=== PATIENT | female | born 1985 | race Caucasian/White ===

== ENCOUNTER 2017-04-22 08:32 | Outpatient (RCR) | payer OTHER, SELFPAY | END 2017-04-22 08:33 | LOC: DC 08:32 | PROVIDERS: Visit Provider Obstetrics & Gynecology | DX: O24.410 Gestational diabetes mellitus in pregnancy, diet controlled (principal); Z71.3 Dietary counseling and surveillance | CPT/HCPCS: G0108 ==

== ENCOUNTER → 2017-05-25 11:42 | Outpatient (CLI) | payer OTHER, SELFPAY ==
[2017-05-25 15:16] LABS: Hematocrit 36.4 % (37-47); Hemoglobin 11.7 g/dl (12.0-15.0); Mean Corp Hgb Conc 32.1 g/gl (32-36); Mean Corpuscular Hgb 25.7 pg (27.0-32.0); Mean Platelet Vol. 9.7 fl (6.2-12.0); Platelet Count 219 K/mm3 (150-450); RBC Distribution Width CV 14.4 % (11.6-14.6); RBC Distribution Width SD 41.3 fl (35.1-43.9); Red Blood Count 4.55 M/mm3 (4.2-5.4); White Blood Count 10.9 K/mm3 (4.4-11.0)
[2017-05-25 15:18] LABS: Scan Indicated on CBC? Y/N NO
[2017-05-25 15:31] LABS: ALB/GLOB Ratio 0.6 RATIO (0.9-2.4); AST(SGOT) 12 U/L (15-37); Alanine Aminotransfer ALT/SGPT 17 U/L (13-56); Albumin, Serum 2.5 g/dL (3.2-5.0); Alkaline Phosphatase 144 U/L (45-117); Anion Gap 9 (5-15); BUN 6 mg/dL (7-18); Calcium,Total 8.3 mg/dL (8.5-10.1); Chloride 108 mmol/L (98-107); EST Glomerular Filtration Rate 196 mL/min (>60); Est Glom Filt Rate - Afr Amer 237 mL/min (>60); Globulin 3.9 g/dL (2.2-4.2); Glucose 110 mg/dL (74-106); Potassium 3.8 mmol/L (3.5-5.1); Protein, Total 6.4 g/dL (6.4-8.2); Sodium Level 138 mmol/L (136-145)
== END ==
PROVIDERS: Visit Provider Obstetrics & Gynecology
DX: O26.893 Other specified pregnancy related conditions, third trimester (principal); R11.0 Nausea; Z3A.00 Weeks of gestation of pregnancy not specified
CPT/HCPCS: 36415; 80053; 85027

== ENCOUNTER 2017-06-21 05:10 | Inpatient (IN) | payer OTHER, SELFPAY ==
[2017-06-15 15:44] VITALS: BMI 42.0
[2017-06-21] VITALS (14 sets, daily range): BP systolic 90–144; BP diastolic 45–97; PULSE 70–94; RESP 14–24; TEMP 35.6–36.2; O2SAT 97–100
[2017-06-21] MEDS: Lactated Ringers 1,000 ML 999 ML IV (05:40)
[2017-06-21 06:17] LABS: Absolute Lymphocyte Count 1.72 X10^3/ul (0.83-4.51); Absolute Neutrophil Count 9.8 X10^3/uL (2.0-7.7); Basophil# 0.03 X10^3/uL; Basophil% 0.2 % (0-1); Eosinophil# 0.14 X10^3/uL; Eosinophils% 1.1 % (0-5); Hematocrit 36.6 % (37-47); Hemoglobin 11.9 g/dl (12.0-15.0); Lymphocyte # 1.72 X10^3/ul (4.0); Lymphocyte % 13.9 % (19-41); Mean Corp Hgb Conc 32.5 g/gl (32-36); Mean Corpuscular Hgb 25.4 pg (27.0-32.0); Mean Corpuscular Volume 78.2 fL (81-99); Mean Platelet Vol. 10.6 fl (6.2-12.0); Monocyte# 0.67 X10^3/uL; Monocyte% 5.4 % (0-10); Neutrophil # 9.76 X10^3/uL (2.7-7.7); Neutrophil % 78.8 % (47-70); Platelet Count 252 K/mm3 (150-450); RBC Distribution Width CV 14.5 % (11.6-14.6); RBC Distribution Width SD 40.3 fl (35.1-43.9); Red Blood Count 4.68 M/mm3 (4.2-5.4); White Blood Count 12.4 K/mm3 (4.4-11.0)
[2017-06-21 06:23] LABS: POSITIVE COUNT NO; POSITIVE DIFFERENTIAL NO; POSITIVE MORPHOLOGY NO
[2017-06-21 06:34] LABS: International Normalized Ratio 0.9; Prothrombin Time (Protime)PT. 12.2 SECONDS (11.7-14.9)
[2017-06-21] MEDS: Lactated Ringers 1,000 ML 150 ML IV (06:42)
[2017-06-21] MEDS: Sodium Citrate/Citric Acid 30 ML UDC PO (06:57)
--- NOTE | 2017-06-21 07:18 | PLAC_PTH ---
PATIENT: SHANELL GILLIAM LOC: [facility] U#:[id number] AGE/SX: 31/F ROOM: WP007 RE06/21/[address]: Dr. Tory Gardner MD : 1985 BED: 1 DIS: 06/23/2017 SPEC #: [id number] RECD: 06/22/17 05:06 STATUS: CARL OPHELIA #: [id number] LAZARO: 06/21/17 07:[address]: Tory Gardner DEPT: SURGICAL PATHOLOGY RECD BY: Freddie Ng ENTERED: 06/22/17 11:24 SP TYPE: PLACENTA OTHR DR: Out of [facility] Doctor Tissues: Placenta, NOS Procedures: Surgery Specimen Level V HEADER OPERATION: Repeat section PRE-OP DIAGNOSIS: Diabetic, 39 weeks TISSUE SUBMITTED: Placenta MICROSCOPIC DIAGNOSIS Sanchez placenta (1166 gm): Umbilical cord ? trivascular with early acute funisitis. Placental membranes ? no pathologic change. Placental disc ? organism foci of intraparenchymal hemorrhage. Increased intraparenchymal fibrin plaques, intravillous congestion and intervillous congestion. AM:kaela 06/23/17 MICROSCOPIC DESCRIPTION Slides are reviewed. GROSS DESCRIPTION SPECIMEN: PLACENTA / CLINICAL INFORMATION: A. Weight: 4.483 kg B. Gestational Age: 39 weeks C. Sex: Male PLACENTAL WEIGHT (POST FIXATION): 1166 gm PLACENTAL DIMENSIONS: 21 x 17 x 4 cm PLACENTAL SHAPE: Usual ovoid PLACENTAL WEIGHT FOR GESTATIONAL AGE: Over 10-99th percentile MEMBRANES - Present A. Insertion: Marginal B. Site of rupture from edge: At edge of placental disc C. Color of membrane: Almonte-singletary D. Abnormalities: None UMBILICAL CORD - Present A. Color: Almonte-singletary B. Insertion: Eccentric C. Length: 48 cm D. Diameter: 1.4 cm E. Number of vessels: Three F. Abnormalities: None PLACENTAL DISC - Present A. Color of surface: Almonte-singletary B. surface abnormalities: None C. Maternal cotyledons: Intact with minimal tears D. Attached retro placental clot: No clot E. Cut surface: Dark red and spongy F. Lesions: Serial sections reveal two firm, almonte-white lesions near the maternal surface ranging in size from 1.5 to 1.8 cm in greatest dimension. G. Separate clot: Absent SECTIONS SUBMITTED: 1. Umbilical cord and membranes. 2. Largest placental lesion. 3. Smaller placental lesion. 4. Placental disc, and maternal surfaces 5. Placental disc, and maternal surfaces AM:kaela 06/22/17 TC:2 CPT: 34533
--- NOTE | 2017-06-21 07:44 | FALS_PTH ---
PATIENT: SHANELL GILLIAM LOC: [facility] U#:[id number] AGE/SX: 31/F ROOM: WP007 RE06/21/[address]: Dr. Tory Gardner MD : 1985 BED: 1 DIS: 06/23/2017 SPEC #: [id number] RECD: 06/21/17 11:00 STATUS: CARL OPHELIA #: [id number] LAZARO: 06/21/17 07:[address]: Tory Gardner DEPT: SURGICAL PATHOLOGY RECD BY: Naif Reyes ENTERED: 06/21/17 11:51 SP TYPE: FALL TUBES OTHR DR: Out of [facility] Doctor Tissues: Fallopian tube Procedures: Surgery Specimen Level II HEADER OPERATION: Tubal ligation PRE-OP DIAGNOSIS: Desires sterilization TISSUE SUBMITTED: Fallopian tubes, suture in right tube MICROSCOPIC DIAGNOSIS Bilateral fallopian tubes, tubal ligation: Completely transected segments of bilateral fallopian tubes, no pathologic diagnosis. SJ:kaela 06/22/17 MICROSCOPIC DESCRIPTION Slides are reviewed. GROSS DESCRIPTION Received is one container labeled with the patient's name and designated suture right tube. The specimen consists of two pieces of almonte tubular tissue. The right tube is identified by a suture. The right fallopian tube measures 1.5 cm in length and 0.5 cm in diameter. The left fallopian tube measures 2 cm in length and 0.5 cm in diameter. The right tube with suture is inked black. The entire specimen is submitted in one cassette. Both pieces will be serially sectioned at the time of embedding. / GLORIA:kaela 06/21/17 TC:4 CPT: 59498 x2
[2017-06-21] MEDS: Oxytocin 30 units/NS 500 ml 30 UNITS/500 ML IV.SOLN 167 UNITS IV (07:45)
[2017-06-21] MEDS: Ketorolac 30 MG/ML Syringe IV ×3 (08:30→20:45)
[2017-06-21] MEDS: Lactated Ringers 1,000 ML 100 ML IV ×2 (08:46→17:38)
[2017-06-21 09:10] LABS: Bedside Glucose 104 mg/dL (70-110)
[2017-06-21 11:00] LABS: Pathology Specimen OB SEE PATHOLOGY REPORT
[2017-06-21] MEDS: Sertraline 50 MG Tablet PO (11:38)
[2017-06-21] MEDS: Prenatal Vits Tablet 1 TABLET PO (11:39)
[2017-06-21] MEDS: 0.9% Saline Lock 10 ML Syringe IV (14:31)
[2017-06-21 15:01] LABS: Bedside Glucose 66 mg/dL (70-110)
--- NOTE | 2017-06-21 15:52 | PCM.OP.BLANK ---
Operative Report Date of Procedure: 06/21/17 PROCEDURE: Repeat C section. Bilateral partial salpingectomy Preoperative diagnosis: 39 wk EGA Prior C section, planned repeat C section Sterilization request. Insulin requiring Gestational diabetes Postop diagnosis: 39 wk EGA Prior C section, planned repeat C section Sterilization request. Insulin requiring Gestational diabetes Anesthesia: Epidural, Theodore Saunders CRNA Surgeon: Tory Gardner MD Infection Control Preventionist: JAVIER Gregg EBL 800 cc Complications: none Drains: Aggarwal draining clear yellow urine Fluids: replacement LR Findings: At amniotomy, clear fluid was noted. Sanchez viable male in vertex presentation. Apgars 9/9, Baby weight: 10# 5 oz. There was a normal appearing uterus, fallopian tubes and ovaries bilaterally. There were filmy adhesions between the bladder and the anterior lower uterine segment. PATH: Routine cord blood for typing collected. Routine cord gases were sent. Bilateral fallopian tube segments. Narrative account: After the risks, benefits and alternatives of the procedure were reviewed with the patient, informed consent was obtained. The patient was taken to the Operative room with an IV running, and placed in a seated position on the operating table for placement of the spinal. Once the spinal had been administered, she was briefly frog-legged for Aggarwal catheter placement, and then repositioned to dorsal supine position with leftward displacement of the uterus, and prepped and draped in the usual sterile fashion. Once the spinal was deemed adequate, a Pfannenstiel skin incision was created using the knife (through the prior skin incision scar). The incision was carried down to the rectus fascia using the knife. The fascia was nicked in the midline. The fascial incision was extended bilaterally using curved Yeboah scissors. The superior aspect of the fascial incision was grasped with Sy clamps and tented up and the underlying rectus abdominal muscles were dissected free. In a similar manner, the inferior aspect of the facial incision was grasped with Sy clamps tented up and the underlying rectus abdominal muscles were dissected free. The rectus abdominis muscles were in the midline and the peritoneum was identified and entered by sharp dissection high in the incision. The peritoneum was stretched laterally and a bladder blade was inserted. A bladder flap was created along the lower uterine segment with Metzenbaum scissors . The uterine incision was then created using Metzenbaum scissors. The operators fingertips were used to extend the uterine incision by blunt dissection in a caudad- cephalad orientation . Clear fluid was noted at amniotomy. The vertex was then delivered atraumatically through the incision. The OP and nares were bulb suctioned on the abdomen. The shoulders delivered easily. The cord clamped x two and cut. And the infant was handed off to the nurse awaiting delivery after briefly showing him to his parents. The baby had a spontaneous, vigorous cry. The umbilical cord was clamped again to maintain blood for cord blood collection and the placenta was then delivered. The uterus was exteriorized and cleared of clots and debris . The uterine incision was repaired with 1 Vicryl in a running locked fashion. Excellent hemostasis was noted. The R fallopian tube was grasped at a relatively avascular midportion and a Briana clamp was used to tent the tube up. A defect was created in the mesosalpinx using Bovie cautery and the proximal and distal end of the fallopian tube were tied with 2-0 catgut. A knuckle of the tube was then tied off inferior to the ties. A segment of the L fallopian tube was then excised using Metzenbaum scissors and the tubal stumps were Bovie cauterized to assure continued hemostasis. The tubal segment was set aside for later pathology review. In a similar manner the L fallopian partial salpingectomy was performed. Excellent hemostasis was noted at all tubal segments. At this point the uterus was returned to the abdominal cavity. The gutters were cleared of clots and debris and the incision at the uterus was inspected. Excellent hemostasis was noted. The peritoneal edges and rectus abdominis muscles were reapproximated in the midline with interrupted sutures of 1 Vicryl. Excellent hemostasis was noted at the subfascial space The fascia was closed in a running nonlocked fashion with a Stratafix suture. The Subcutaneous fatty tissue was Bovie cauterized as needed for hemostasis. This layer was then reapproximated with a single layer of running 3-0 Vicryl to eliminate space. The skin edges were closed in a Subcuticular stitch of 4-0 Monocryl. The incision was cleansed. Cavilon, Steristrips, and a Mepilex dressing were applied. The patient was then transferred to the recovery room bed in stable condition after tolerating the procedure well. Sponge, lap, needle and instrument counts correct times two. Medications given preop and intraoperatively included: Ancef 3 gm given quality control director to the operating room. The patient also received Pitocin given IV after cord clamp, and Toradol 30 mg IV times one. For a complete listing of medications given preop and intraoperatively, please see the anesthesia record.
--- NOTE | 2017-06-21 16:05 | PCM.DCCSEC ---
Discharge Diet: No Restrictions Discharge Activity: May not drive while taking narcotic pain medications., May Shower, May Take a Tub Bath Return to work on:: 08/16/17 May resume sexual activity in: 4-6 weeks Lifting Restrictions: 20 pounds Additional Activity Instructions:: Nothing in the vagina for 4-6 weeks. You may return to work/school in 6 weeks. Change Dressing in (Days):: 4 Remove Dressing in (days):: 4 Cleanse incision/area with: Soap & Water, Keep Dressing Clean & Dry Additional Instructions: If you experience any of the following, contact your healthcare provider. Bleeding that soaks a pad every hour for 2 hours Fever 100.4 or higher Unrelieved incision or abdominal pain Swelling, redness, discharge or bleeding from your incision Problems urinating (including inability to urinate or burning while urinating). Visual changes Severe headache Flu-like symptoms Pain or redness in one of both of your breasts Pain, warmth, tenderness or swelling in your legs, especially the calf area Frequent nausea and vomiting Symptoms of depression or anxiety If you experience any of the following, call 911 or go to the nearest Emergency Room. Chest pain Problems breathing Seizure activity Partial or complete paralysis of a body part, slurred speech, weakness or drooping of the face, or a sudden inability to walk or hold your balance Allergies/Adverse Reactions: Allergies No Known Allergies Allergy (Verified 06/21/17 05:23) Medications to take at Discharge Vits [Prenatabs FA ] 1 tablet PO DAILY 06/15/17 Sertraline HCl [Zoloft] 50 mg PO DAILY 06/15/17 Acetaminophen [Tylenol] 1,000 mg PO Q8H PRN tablet 06/21/17 Naproxen [Naprosyn] 250 - 500 mg PO Q8H PRN PRN #30 tab 06/21/17 Oxycodone [Oxyir] 5 - 10 mg PO Q4H PRN PRN 7 Days #28 tablet 06/21/17 Senna/Docusate Sodium [Senokot-S] 1 - 2 tab PO DAILY PRN #30 tab 06/21/17 The following prescriptions were given: Oxycodone [Oxyir] 5 - 10 mg PO Q4H PRN PRN 7 Days #28 tablet PRN Reason: Mod-Severe Pain (-01/26) Naproxen [Naprosyn] 250 - 500 mg PO Q8H PRN PRN #30 tab PRN Reason: Mild Pain (1-06/26) Senna/Docusate Sodium [Senokot-S] 1 - 2 tab PO DAILY PRN #30 tab PRN Reason: Constipation Follow-Up: Call to make an appointment with your doctor for an incision check in 1-2 weeks. You will also need a 6 week post- follow up appointment. Please Follow Up With: Tory Gardner MD - [phone] When: Call to make an appointment for an incision check in 2 weeks. Primary Care Physician: Jonnie Brewer,Out of [Primary Care Provider] - Proposed Discharge Date: 06/24/17
--- NOTE | 2017-06-21 16:10 | DCINST_ITS ---
Discharge Diet: No Restrictions Discharge Activity: May not drive while taking narcotic pain medications., May Shower, May Take a Tub Bath Return to work on:: 08/16/17 May resume sexual activity in: 4-6 weeks Lifting Restrictions: 20 pounds Additional Activity Instructions:: Nothing in the vagina for 4-6 weeks. You may return to work/school in 6 weeks. Change Dressing in (Days):: 4 Remove Dressing in (days):: 4 Cleanse incision/area with: Soap & Water, Keep Dressing Clean & Dry Additional Instructions: If you experience any of the following, contact your healthcare provider. * Bleeding that soaks a pad every hour for 2 hours * Fever 100.4 or higher * Unrelieved incision or abdominal pain * Swelling, redness, discharge or bleeding from your incision * Problems urinating (including inability to urinate or burning while urinating) . * Visual changes * Severe headache * Flu-like symptoms * Pain or redness in one of both of your breasts * Pain, warmth, tenderness or swelling in your legs, especially the calf area * Frequent nausea and vomiting * Symptoms of depression or anxiety If you experience any of the following, call 911 or go to the nearest Emergency Room. * Chest pain * Problems breathing * Seizure activity * Partial or complete paralysis of a body part, slurred speech, weakness or drooping of the face, or a sudden inability to walk or hold your balance Allergies/Adverse Reactions: Allergies No Known Allergies Allergy (Verified 06/21/17 05:23) Medications to take at Discharge Vits [Prenatabs FA ] 1 tablet PO DAILY 06/15/17 Sertraline HCl [Zoloft] 50 mg PO DAILY 06/15/17 Acetaminophen [Tylenol] 1,000 mg PO Q8H PRN tablet 06/21/17 Naproxen [Naprosyn] 250 - 500 mg PO Q8H PRN PRN #30 tab 06/21/17 Oxycodone [Oxyir] 5 - 10 mg PO Q4H PRN PRN 7 Days #28 tablet 06/21/17 Senna/Docusate Sodium [Senokot-S] 1 - 2 tab PO DAILY PRN #30 tab 06/21/17 The following prescriptions were given: Oxycodone [Oxyir] 5 - 10 mg PO Q4H PRN PRN 7 Days #28 tablet PRN Reason: Mod-Severe Pain (-01/26) Naproxen [Naprosyn] 250 - 500 mg PO Q8H PRN PRN #30 tab PRN Reason: Mild Pain (1-06/26) Senna/Docusate Sodium [Senokot-S] 1 - 2 tab PO DAILY PRN #30 tab PRN Reason: Constipation Follow-Up: Call to make an appointment with your doctor for an incision check in 1-2 weeks. You will also need a 6 week post- follow up appointment. Please Follow Up With: Tory Gardner MD - [phone] When: Call to make an appointment for an incision check in 2 weeks. Primary Care Physician: Jonnie Brewer,Out of [Primary Care Provider] - Proposed Discharge Date: 06/24/17
[2017-06-21 18:11] LABS: Bedside Glucose 99 mg/dL (70-110)
[2017-06-22] VITALS (8 sets, daily range): BP systolic 109–132; BP diastolic 53–76; PULSE 76–105; RESP 16–18; TEMP 36.4–37.2; O2SAT 97–100
[2017-06-22] MEDS: Ketorolac 30 MG/ML Syringe IV ×4 (02:58→20:23)
[2017-06-22 06:12] LABS: Hematocrit 27.5 % (37-47); Hemoglobin 8.8 g/dl (12.0-15.0); Mean Corpuscular Hgb 25.4 pg (27.0-32.0); Mean Corpuscular Volume 79.3 fL (81-99); Mean Platelet Vol. 9.8 fl (6.2-12.0); Platelet Count 180 K/mm3 (150-450); RBC Distribution Width CV 14.6 % (11.6-14.6); RBC Distribution Width SD 40.1 fl (35.1-43.9); Red Blood Count 3.47 M/mm3 (4.2-5.4); White Blood Count 12.8 K/mm3 (4.4-11.0)
[2017-06-22 06:21] LABS: Bedside Glucose 71 mg/dL (70-110)
[2017-06-22 06:21] LABS: Scan Indicated on CBC? Y/N NO
[2017-06-22 07:06] LABS: Bedside Glucose 77 mg/dL (70-110)
--- NOTE | 2017-06-22 07:55 | PCM.PN.OB ---
Subjective: POD#1 repeat C/S and BPS Doing well. No concerns voiced. No N/V tolerating diet. Blood sugars all WNL and off insulin. She is breast feeding. Out of bed to chair and tolerated this well. - Physical Exam General: Alert, Oriented x3, Cooperative, No apparent distress HEENT: Atraumatic Neck: Supple Abdomen: Soft - Fundus firm minimally tender cw postop, inferior to umbilicus Skin: Incision - Mepilex CDI Neurological: Cranial nerves II-XII grossly intact Psych/Mental Status: Normal Affect Vital Signs Temp Pulse Resp BP Pulse Ox 98.9 F 95 18 109/53 L 100 06/22/17 07:49 06/22/17 07:49 06/22/17 07:49 06/22/17 07:49 06/22/17 05:43 Oxygen Delivery Method Room Air Weight: 129 kg Body Mass Index (BMI) 42.0 Intake and Output for Last 24 Hours 03/18 06/21/17 06/22/17 23:59 23:59 23:59 Intake Total 4907 / 4907 Output Total 800 / 800 Balance 4107 / 4107 Laboratory Tests Past 24 Hrs 06/21/17 06/22/17 09:50 05:45 WBC 12.8 H RBC 3.47 L Hgb 8.8 L Hct 27.5 L MCV 79.3 L MCH 25.4 L MCHC 32.0 RDW 14.6 RDW Differential 40.1 Plt Count 180 MPV 9.8 Screen NEGATIVE Baby's Blood Type B POSITIVE Baby's COLT NEGATIVE POC Glucose 06/22/17 06/21/17 06/21/17 05:59 17:47 14:56 POC Glucose 71 99 66 L 06/21/17 06/21/17 09:05 05:28 POC Glucose 104 77 Assessment/Plan POD#1 Repeat C/S and BPS Stable postop. Increase diet and activity as tolerated. Aggarwal out for voiding trial. S/L IV for continued toradol today. Begin po meds. Gestational diabetes, insulin requiring. Off insulin. Checking fingersticks today. If still WNL, then stop fingerstick glucose checks. Acute blood loss anemia superimposed on anemia of . Ferrous sulfate bid to start today. continue care.
[2017-06-22] MEDS: 0.9% Saline Lock 10 ML Syringe IV ×3 (08:37→20:23)
[2017-06-22] MEDS: Ferrous Sulfate 325 MG Tablet PO ×2 (08:40→17:57)
[2017-06-22] MEDS: Senna/Docusate Sodium 1 Tablet PO ×2 (08:57→22:59)
[2017-06-22] MEDS: oxyCODONE 5 MG Tablet PO ×4 (08:58→23:00)
--- NOTE | 2017-06-22 09:46 | NURSING ---
Overseeing nursing home assistant administrator, assessment completed with her.
[2017-06-22] MEDS: Prenatal Vits Tablet 1 TABLET PO (10:07)
[2017-06-22] MEDS: Sertraline 50 MG Tablet PO (10:07)
[2017-06-22 10:31] LABS: Bedside Glucose 122 mg/dL (70-110)
[2017-06-22 15:11] LABS: Bedside Glucose 83 mg/dL (70-110)
[2017-06-22 20:41] LABS: Bedside Glucose 123 mg/dL (70-110)
--- NOTE | 2017-06-22 22:22 | NURSING ---
Reported last 2 hr post prandial BGT of [address] Gardner. Orders given to dc all future BGT's as pt has been stable throughout day.
[2017-06-23 02:00] VITALS: BP 129/62; PULSE 99; RESP 20; TEMP 36.5; O2SAT 99
[2017-06-23] MEDS: Naproxen 250 MG Tablet PO (02:11)
[2017-06-23] MEDS: oxyCODONE 5 MG Tablet PO ×3 (04:47→13:45)
--- NOTE | 2017-06-23 07:35 | PCM.PN.OB ---
Subjective: POD#2 Repeat C/S and BPS doing well. Would like to go home today. - Physical Exam General: Alert, Oriented x3, Cooperative, No apparent distress HEENT: Atraumatic Neck: Supple Abdomen: Soft - fundus firm minimally tender cw postop , inf to umbilicus Skin: Incision - Meipilex CDI Psych/Mental Status: Normal Affect Vital Signs Temp Pulse Resp BP Pulse Ox 97.7 F L 99 20 H 129/62 H 99 06/23/17 02:00 06/23/17 02:00 06/23/17 02:00 06/23/17 02:00 06/23/17 02:00 Oxygen Delivery Method Room Air Weight: 129 kg Body Mass Index (BMI) 42.0 Intake and Output for Last 24 Hours 06/21/06/22/17 06/23/17 23:59 23:59 23:59 Intake Total 4907 / 4907 Output Total 800 / 800 1050 / 1050 Balance 4107 / 4107 -1050 / -1050 POC Glucose 0306/22/17 06/22/17 20:36 14:48 10:19 POC Glucose 123 H 83 122 H Assessment/Plan POD#2 Repeat C/S and BPS Stable postop. D/C home today RTO in 1-2 wk for postop check. Gestational diabetes, insulin requiring. Off insulin. Fingersticks WNL, Stop fingerstick glucose checks. Acute blood loss anemia superimposed on anemia of . Ferrous sulfate bid to start today.
[2017-06-23 07:50] VITALS: BP 127/78; PULSE 85; RESP 16; TEMP 36.3; O2SAT 97
[2017-06-23] MEDS: Ferrous Sulfate 325 MG Tablet PO (08:52)
[2017-06-23] MEDS: Prenatal Vits Tablet 1 TABLET PO (10:32)
[2017-06-23] MEDS: Senna/Docusate Sodium 1 Tablet PO (10:32)
[2017-06-23] MEDS: Sertraline 50 MG Tablet PO (10:32)
[2017-06-23 12:00] VITALS: BP 127/78; PULSE 90; RESP 18; TEMP 36.4; O2SAT 97
[2017-06-23 15:47] LABS: Pathology Specimen OB SEE PATHOLOGY REPORT
--- NOTE | 2017-06-23 18:56 | PCM.DC.SUM ---
Discharge Date and Diagnosis Date of Admission: 06/21/17 Date of Discharge: 06/23/17 Hospital Course and Treatment Operations: - - Repeat C section and bilateral partial salpingectomy Summary of Care Provided: The patient is a 31 year old female at 39 wk EGA who presents for planned repeat C section and bilateral partial salpingectomy. She has been followed also by Maternal Medicine for insulin requiring Gestational diabetes. She was admitted on 06/21/17 for the procedure. the procedure was uncomplicated and resulted in of a wylie viable male Ap 9/9. 10# 5 oz course uneventful. Mild acute blood loss anemia. No further insulin required and fingerstick glucose in normal range with 2 hr pp values in 120s. Requested d/c home POD#2 RTO in 2 wk for postop check. Discharge Diet: No Restrictions Discharge Activity: May not drive while taking narcotic pain medications., May Shower, May Take a Tub Bath Return to work on:: 08/16/17 May resume sexual activity in: 4-6 weeks Additional Activity Instructions:: Nothing in the vagina for 4-6 weeks. You may return to work/school in 6 weeks. Change Dressing in (Days):: 4 Remove Dressing in (days):: 4 Cleanse incision/area with: Soap & Water, Keep Dressing Clean & Dry Home Medications: Medications to take at Discharge Vits [Prenatabs FA ] 1 tablet PO DAILY 06/15/17 Sertraline HCl [Zoloft] 50 mg PO DAILY 06/15/17 Acetaminophen [Tylenol] 1,000 mg PO Q8H PRN tablet 06/21/17 Naproxen [Naprosyn] 250 - 500 mg PO Q8H PRN PRN #30 tab 06/21/17 Oxycodone [Oxyir] 5 - 10 mg PO Q4H PRN PRN 7 Days #28 tablet 06/21/17 Senna/Docusate Sodium [Senokot-S] 1 - 2 tab PO DAILY PRN #30 tab 06/21/17 Following Prescrptions Were Given to Patient: Oxycodone [Oxyir] 5 - 10 mg PO Q4H PRN PRN 7 Days #28 tablet PRN Reason: Mod-Severe Pain (4-10/10) Naproxen [Naprosyn] 250 - 500 mg PO Q8H PRN PRN #30 tab PRN Reason: Mild Pain (-06/26) Senna/Docusate Sodium [Senokot-S] 1 - 2 tab PO DAILY PRN #30 tab PRN Reason: Constipation Primary Care Physician: Jonnie Doctor,Out of [Primary Care Provider] - Please Follow Up With: Tory Gardner MD - [phone] When: Call to make an appointment for an incision check in 2 weeks. Meaningful Use Info Meaningful Use Diagnoses (Choose all that apply): None applicable
== END 2017-06-23 14:25 | disposition home or self-care (01) | DRG 765 ==
PROVIDERS: Admitting Provider Obstetrics & Gynecology; Visit Provider Obstetrics & Gynecology
DX: O34.211 Maternal care for low transverse scar from previous cesarean delivery (principal); D62 Acute posthemorrhagic anemia; O99.02 Anemia complicating childbirth; O24.424 Gestational diabetes mellitus in childbirth, insulin controlled; N85.8 Other specified noninflammatory disorders of uterus; Z37.0 Single live birth; Z3A.39 39 weeks gestation of pregnancy; Z30.2 Encounter for sterilization; Z87.891 Personal history of nicotine dependence
CPT/HCPCS: 82962; 85025; 85027; 85461; 85610; 85730; 86850; 86900; 88302; 88307; 90384; 99218; J7120; A4216; G0378; J2405; J2790

== ENCOUNTER → 2017-08-03 14:09 | Outpatient (CLI) | payer OTHER, SELFPAY ==
[2017-08-10 16:24] LABS: HPV Reflexed? NOT INDICATED
== END ==
PROVIDERS: Visit Provider Obstetrics & Gynecology
DX: R87.612 Low grade squamous intraepithelial lesion on cytologic smear of cervix (LGSIL) (principal)
CPT/HCPCS: 88175; G0145

== ENCOUNTER → 2018-02-08 15:23 | Outpatient (CLI) | payer OTHER, SELFPAY ==
[2018-02-15 10:35] LABS: HPV Reflexed? NOT INDICATED
== END ==
PROVIDERS: Visit Provider Obstetrics & Gynecology
DX: R87.613 High grade squamous intraepithelial lesion on cytologic smear of cervix (HGSIL) (principal)
CPT/HCPCS: 88175; G0145

== ENCOUNTER 2018-03-02 11:24 | Day surgery (SDC) | payer OTHER, SELFPAY ==
--- NOTE | 2018-03-02 | CER_PTH ---
PATIENT: SHANELL GILLIAM [place] [facility] [id number] AGE/SX: 32/F ROOM: RE03/02/[address]: Dr. 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 Focal chronic inflammation. Resection margins are free of dysplastic changes. GLORIA:royce 03/04/18 COMMENT Immunohistochemistry ([id number]) for surrogate HPV marker (p16) supports the above diagnosis. Please make reference to previous specimen [id number] cervix at 7 o'clock with diagnosis of mild squamous dysplasia and cervix at 1 o'clock with diagnosis of moderate to severe squamous dysplasia. MICROSCOPIC DESCRIPTION Slides are reviewed. GROSS DESCRIPTION Received is one container labeled with the patient name and designated LEEP biopsy of cervix. The specimen consists of two almonte indurated pieces of tissue that in aggregate measure 2 x 1.5 x 0.5 cm and 2 x 2 x 1 cm. No mucosal lesion is identified. Nonmucosal surface is inked black. The second larger piece appears to be consistent with LEEP conization. The entire specimen is submitted in 6 cassettes as follows: 1&2 - smaller piece, 3 to 6 - larger piece, LEEP conization with each cassette containing one quadrant. /GLORIA:royce 03/03/18 TC: 5 [facility]: [id number]
--- NOTE | 2018-03-02 | IMM_PTH ---
PATIENT: SHANELL GILLIAM LOC: [facility] [place] U#:[id number] AGE/SX: 32/F ROOM: RE03/02/[address]: Dr. Tory Gardner MD : 1985 BED: DIS: 03/02/2018 SPEC #: [id number] RECD: 03/04/18 13:58 STATUS: CARL RELink #: [id number] LAZARO: 03/02/18 00:[address]: Tory Gardner DEPT: IMMUNOHISTOCHEMISTRY RECD BY: Clay Dixon ENTERED: 03/04/18 13:58 SP TYPE: IMMUNO OTHR DR: Out [facility] Doctor Tissues: UTERINE CERVIX LEEP Procedures: p16 (initial) KI-67 (add) PHYSICIAN & [place] [id number] SPECIMEN INFORMATION: Tissue Source: LEEP biopsy, cervix Clinical Info: High grade squamous intraepithelial lesion Specimen Number: [id number] CPT code: 39260, 95482 METHODOLOGY: Deparaffinized sections of prefer/formalin-fixed tissue or PAP/DQ stained slides are incubated with monoclonal/polyclonal antibodies/oligonucleotide probes. Localization is made via biotin free immunoperoxidase method. Appropriate controls are performed and reacted as expected. Results on target cell population are indicated in the following table: RESULTS: ANTIBODY / CLONE RESULT P16 (E6H4) positive, block staining Ki-67 (30-9) positive, moderate to high These tests were developed and their performance characteristics determined by [facility]. They may not have been cleared or approved by the U.S. Food and Drug Administration. The FDA has determined that such clearance or approval is not necessary. INTERPRETATION: Cervix, LEEP conization: Focal moderate squamous dysplasia SJ:greg 03/04/18
[2018-03-02 11:43] VITALS: BP 121/79; PULSE 66; RESP 16; TEMP 36.7; O2SAT 97; BMI 35.8
[2018-03-02 11:59] LABS: Internal QC Validated? YES +Cl - CLEAR BKGD; Pregnancy, Urine Negative Negative
[2018-03-02] MEDS: FERRIC SUBSULFATE 8 GM SOLN (14:04)
[2018-03-02 14:10] VITALS: BP 121/79; BP 128/62; PULSE 80; RESP 16; TEMP 36.2; O2SAT 95
[2018-03-02 14:15] VITALS: BP 121/79; BP 126/63; PULSE 70; RESP 16; O2SAT 97
--- NOTE | 2018-03-02 14:19 | DCINST_ITS ---
Discharge Diet: No Restrictions Discharge Activity: May Shower, May Take a Tub Bath May resume sexual activity in: 2 weeks Additional Activity Instructions:: nothing in vagina for two weeks to allow healing. Call your doctor if you observe: Fever of 101 or Higher, Inability to have a bowel movement, Using more than one pad per hour, Uncontrolled pain Allergies/Adverse Reactions: Allergies No Known Allergies Allergy (Verified 03/02/18 11:41) Medications to take at Discharge Acetaminophen [Tylenol] 1,000 mg PO Q8H PRN tablet 06/21/17 Fluoxetine HCl [Prozac] 60 mg PO DAILY 02/25/18 Primary Care Physician: [facility] ,Out of [Primary Care Provider] - Test Results: Test results from this visit will be discussed in further detail at your follow- up appointment, if applicable. Please Follow Up With: Tory Gardner MD - [phone] When: in 2 wks as planned
[2018-03-02 14:20] VITALS: BP 121/70; BP 121/79; PULSE 60; RESP 16; O2SAT 97
[2018-03-02 14:25] VITALS: BP 121/79; BP 122/69; PULSE 72; RESP 16; TEMP 36.3; O2SAT 98
[2018-03-02 15:18] VITALS: BP 121/79; BP 122/54; PULSE 59; RESP 16; TEMP 36.7; O2SAT 100
--- NOTE | 2018-03-03 06:09 | PCM.OP.BLANK ---
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 Anesthesia: MAC IV sedation, Shun Nielsen CRNA 10 cc 1% lidocaine with epinephrine as paracervical block, Tory Gardner MD Estimated Blood Loss (mL): Minimal Complications: None. Drains: None. Fluids Replaced: Lactated Ringers Findings: Nonparous appearing cervix, with Lugol nonstaining area at posterior cervix. Pathology Specimen: LEEP cone biopsy, ectocervix. Narrative Account: After the risks, benefits, alteratives of the procedure were reviewed with the patient informed consent was obtained. The patient was taken to the OR with IV running and placed in dorsal supine position on the operating table. She was given IV sedation , and then repositioned to the dorsal lithotomy position and was prepped and draped in the usual sterile fashion. A coated Graves speculum was placed, the cervix was identified and a 10cc paracervical block was instilled at the 2:00, 4:00, 8:00 and 10:00 positions. Lugol was applied to the cervix. A Lugol nonstaining area was noted at the ectocervix. A loop electrical excision procedure was then performed at a power of 50-50 with blend of 1 between cut and coag. The biopsy was performed with a single pass. Excellent hemostasis was noted. A ball cautery was then used to cauterize the margins of the cervix at the biopsy site. Monsel solution was applied to the cervix . Excellent hemostasis was noted. A sponge stick was then used to remove any remaining tissue and blood from the upper vagina and cervix . All instruments were then removed from the vagina. The patient was awakened from her IV sedation, and then transferred to her recovery room bed in stable condition after tolerating the procedure well. Sponge , instrument, and needle counts were correct x two. Medications given intraoperatively included: the 10cc of 1% lidocaine with epinephrine as paracervical block. For a complete listing of medications given intraoperatively, please see the anesthesia record.
== END 2018-03-02 15:22 | disposition home or self-care (01) ==
LOC: SDC 11:25 → AC 11:31
PROVIDERS: Anesthesiology; Referring Provider Obstetrics & Gynecology; Visit Provider Obstetrics & Gynecology
PROC: 0UBC7ZZ Excision of Cervix, Via Natural or Artificial Opening (ICD-10-PCS; CPT 57522; principal; 2018-03-02 13:10)
DX: N87.1 Moderate cervical dysplasia (principal); F17.200 Nicotine dependence, unspecified, uncomplicated; F32.9 Major depressive disorder, single episode, unspecified; F41.9 Anxiety disorder, unspecified
CPT/HCPCS: 00940; 57522; 81025; 88307; 88341; 88342; J7120; J2405

== ENCOUNTER → 2018-07-25 17:52 | Outpatient (CLI) | payer OTHER, SELFPAY ==
[2018-07-29 11:32] LABS: HPV Reflexed? NOT INDICATED
== END ==
PROVIDERS: Referring Provider Obstetrics & Gynecology; Visit Provider Obstetrics & Gynecology
DX: R87.613 High grade squamous intraepithelial lesion on cytologic smear of cervix (HGSIL) (principal)
CPT/HCPCS: 88175; G0145

== ENCOUNTER → 2018-11-22 15:48 | Outpatient (CLI) | payer OTHER, SELFPAY ==
[2018-11-26 10:03] LABS: HPV HC, High Risk Negative (Negative)
== END ==
PROVIDERS: Visit Provider Obstetrics & Gynecology
DX: Z09 Encounter for follow-up examination after completed treatment for conditions other than malignant neoplasm (principal); R87.613 High grade squamous intraepithelial lesion on cytologic smear of cervix (HGSIL)
CPT/HCPCS: 87624; 88175; G0145

== ENCOUNTER → 2019-05-16 15:58 | Outpatient (CLI) | payer OTHER, SELFPAY ==
[2019-05-19 19:28] LABS: HPV HC, High Risk Negative (Negative)
== END ==
PROVIDERS: Visit Provider Advanced Practice Midwife
DX: R87.612 Low grade squamous intraepithelial lesion on cytologic smear of cervix (LGSIL) (principal)
CPT/HCPCS: 87624; 88175; G0145

== ENCOUNTER → 2019-06-16 15:52 | Outpatient (CLI) | payer OTHER, SELFPAY ==
--- NOTE | 2019-06-16 | IMM_PTH ---
PATIENT: SHANELL GILLIAM LOC: [facility] U#:[id number] AGE/SX: 39/F ROOM: RE06/16/[address]: Dr. Jersey Albarran MD : 1985 BED: DIS: SPEC #: [id number] RECD: 06/20/19 13:44 STATUS: CARL RELink #: [id number] LAZARO: 06/16/19 00:[address]: Jersey Albarran DEPT: IMMUNOHISTOCHEMISTRY RECD BY: Katina Squires Tissues: A - Uterine cervix, NOS Procedures: p16 (initial) KI-67 (add) PHYSICIAN & INSTITUTION [place] [id number] SPECIMEN INFORMATION: Tissue Source: A - Cervical biopsy four quad Clinical Info: GEOVANNI Specimen Number: [id number] CPT code: 83132, 91540 METHODOLOGY: Deparaffinized sections of prefer/formalin-fixed tissue or PAP/DQ stained slides are incubated with monoclonal/polyclonal antibodies/oligonucleotide probes. Localization is made via biotin free immunoperoxidase method. Appropriate controls are performed and reacted as expected. Results on target cell population are indicated in the following table: RESULTS: ANTIBODY / CLONE RESULT Block A P16 (E6H4) positive, focal patchy Ki-67 (30-9) positive, low These tests were developed and their performance characteristics determined by [facility]. They may not have been cleared or approved by the [place]. Food and Drug Administration. The FDA has determined that such clearance or approval is not necessary. The above immunohistochemical/dualISH markers are ordered and reviewed by the Pathologist. INTERPRETATION: A. Cervical biopsy, four quad: Focal mild squamous dysplasia. SJ:kaela 06/21/19
--- NOTE | 2019-06-16 15:00 | CER_PTH ---
PATIENT: SHANELL GILLIAM LOC: [facility] U#:[id number] AGE/SX: 39/F ROOM: RE06/16/[address]: Dr. Jersey Albarran MD : 1985 BED: DIS: SPEC #: [id number] RECD: 06/16/19 15:46 STATUS: CARL JOHNSONLink #: [id number] LAZARO: 06/16/19 15:[address]: Jersey Albarran DEPT: SURGICAL PATHOLOGY RECD BY: Freddie Ng Tissues: A - Uterine cervix, NOS B - Uterine cervix, NOS Procedures: Surgery Specimen Level IV HEADER OPERATION: Colposcopy PRE-OP DIAGNOSIS: LGSIL TISSUE SUBMITTED: A - Cervical biopsy four quad, B - ECC MICROSCOPIC DIAGNOSIS A. Cervix, four quadrant, biopsy: Focal mild squamous dysplasia (LGSIL, RANDY I). See comment. B. ECC: Fragments of benign ecto- and endocervical epithelium and endocervical mucosa, blood and mucous, negative for dysplasia. SJ:kaela 06/20/19 COMMENT A. Immunohistochemistry ([id number]) for surrogate HPV marker (p16) supports the above diagnosis. Please make reference to previous specimens ([id number]) cervix at 7 o'clock, biopsy with diagnosis of mild squamous dysplasia and cervix at 1 o'clock, biopsy with diagnosis of moderate to severe squamous dysplasia and ([id number]) cervix, LEEP conization with diagnosis mild to moderate squamous dysplasia. MICROSCOPIC DESCRIPTION Slides are reviewed. GROSS DESCRIPTION A - Received in fixative is one container labeled with the patient's name and designated cervical biopsy four quadrant. The specimen consists of multiple irregular fragments of light almonte soft tissue that in aggregate measure 1.5 x 0.5 x 0.1 cm. The specimen is totally submitted in one cassette. B - Received in fixative is one container labeled with the patient's name and designated ECC. The specimen consists of multiple fragments of hemorrhagic soft tissue mixed with mucoid tissue that in aggregate measure 1 x 0.5 x 0.1 cm. The specimen is totally submitted in one cassette. / SJ:kaela 06/19/19 TC:5 CPT: 50043 x2
== END ==
PROVIDERS: Referring Provider Obstetrics & Gynecology; Visit Provider Obstetrics & Gynecology
DX: R87.612 Low grade squamous intraepithelial lesion on cytologic smear of cervix (LGSIL) (principal)
CPT/HCPCS: 88305; 88341; 88342

== ENCOUNTER → 2020-06-25 09:14 | Outpatient (CLI) | payer OTHER, SELFPAY | PROVIDERS: PCP Family Medicine Sports Medicine; Referring Provider Family Medicine Sports Medicine; Visit Provider Family Medicine Sports Medicine | DX: Z00.00 Encounter for general adult medical examination without abnormal findings (principal) ==

== ENCOUNTER → 2022-11-11 | Outpatient (CLI) | payer OTHER, SELFPAY ==
[2022-11-11 15:03] LABS: Absolute Lymphocyte Count 3.04 X10^3/uL (0.83-4.51); Absolute Neutrophil Count 8.2 X10^3/uL (2.0-7.7); Basophil# 0.05 X10^3/uL; Basophil% 0.4 % (0-1); Eosinophil# 0.19 X10^3/uL; Eosinophils% 1.6 % (0-5); Hematocrit 41.3 % (37-47); Hemoglobin 13.4 g/dL (12.0-15.0); Lymphocyte # 3.04 X10^3/ul (0.83-4.51); Lymphocyte % 25.1 % (19-41); Mean Corp Hgb Conc 32.4 g/dL (32-36); Mean Corpuscular Hgb 26.3 pg (27.0-32.0); Mean Corpuscular Volume 81.1 fL (81-99); NRBC Flagged by Analyzer 0 % (0-5); Neutrophil # 8.19 X10^3/uL (2.7-7.7); Neutrophil % 67.5 % (47-70); Platelet Count 381 K/mm3 (150-450); RBC Distribution Width CV 13.7 % (11.6-14.6); RBC Distribution Width SD 39.9 fl (35.1-43.9); Red Blood Count 5.09 M/mm3 (4.2-5.4); White Blood Count 12.1 K/mm3 (4.4-11.0)
[2022-11-11 15:38] LABS: Estradiol 116.6 pg/mL; Follicle Stimulating Hormone 2.1 mIU/mL; Luteinizing Hormone 3.6 mIU/mL; Prolactin 8.4 ng/mL; T4 Free Direct 0.94 ng/dL (0.76-1.46); Thyroid Stim Hormone (TSH) 1.46 uIU/mL (0.358-3.74)
[2022-11-16 22:07] LABS: HPV APTIMA, High Risk Negative (Negative)
== END | disposition home or self-care (01) ==
PROVIDERS: PCP Family Medicine Sports Medicine; Referring Provider Nurse Practitioner Women's Health; Visit Provider Nurse Practitioner Women's Health
DX: Z01.419 Encounter for gynecological examination (general) (routine) without abnormal findings (principal); N93.9 Abnormal uterine and vaginal bleeding, unspecified
CPT/HCPCS: 36415; 82670; 83001; 83002; 84146; 84439; 84443; 85025; 87624; 88175; G0145